=== PATIENT | female | born 1985 | race Caucasian/White ===

== ENCOUNTER 2016-12-21 15:12 | Emergency (ER) | payer SELFPAY ==
[2016-12-21 17:19] VITALS: BP 120/87
== END 2016-12-21 17:25 | disposition left against medical advice (07) ==
LOC: ED 15:12
DX: O20.9 Hemorrhage in early pregnancy, unspecified (principal); Z3A.09 9 weeks gestation of pregnancy; Z53.21 Procedure and treatment not carried out due to patient leaving prior to being seen by health care provider